=== PATIENT | female | born 1950 | race American Indian/Alaskan Native ===

== ENCOUNTER 2016-07-14 09:24 | Emergency (ER) | payer MEDICARE ==
--- NOTE | 2016-07-14 09:36 | Emergency Department Report ---
ED Asthma HPI - General Stated Complaint: ASTHMA ATTACK Time Seen by Provider: 07/14/16 09:31 Source: patient, family Mode of arrival: Wheelchair Limitations: No Limitations - History of Present Illness Initial Comments: This is a 65-year-old female. Asthma attack. She said this started this morning. Denies any fever or chills. Denies any shortness chest pain or difficulty breathing. She says she is coughing and wheezing. She says she is on albuterol and she is out of her medication. Denies any nausea vomiting. MD Complaint: "asthma attack", wheezing -: This morning Asthma History: adult onset, history of prior ED visit Severity: moderate, similar to prior Context: ran out of meds Associated Symptoms: dry cough Treatments Prior to Arrival: other (none) - Related Data Current Asthma Therapy: inhaled bronchodilator Home Medications Medication Instructions Recorded Confirmed Last Taken Amlodipine Besylate [Norvasc] 10 mg PO DAILY 08/28/15 08/28/15 Unknown Ferrous Sulfate [Feosol 325 MG tab] 325 mg PO DAILY 08/28/15 08/28/15 Unknown Previous Rx's Medication Instructions Recorded Last Taken Type Albuterol Sulfate [Albuterol 0.63% 0.63 mg IH TID PRN #60 units 08/28/15 Unknown Rx NEBS] ALBUTEROL Inhaler [ProAir HFA 2 puff IH QID PRN #1 inhalation 07/14/16 Unknown Rx Inhaler] Doxycycline [Vibramycin CAP] 100 mg PO Q12HR #20 capsule 07/14/16 Unknown Rx predniSONE [Deltasone] 50 mg PO QDAY #5 tab 07/14/16 Unknown Rx Allergies Allergy/AdvReac Type Severity Reaction Status Date / Time No Known Allergies Allergy Unverified 03/16/15 15:52 ED Review of Systems ROS: Stated complaint: ASTHMA ATTACK Other details as noted in HPI Comment: All other systems reviewed and negative Constitutional: denies: chills, fever Eyes: denies: eye discharge ENT: denies: ear pain, throat pain, congestion Respiratory: cough, wheezing. denies: orthopnea, shortness of breath, SOB with exertion, SOB at rest, stridor Cardiovascular: denies: chest pain, palpitations, edema, syncope Gastrointestinal: denies: abdominal pain, nausea, vomiting Musculoskeletal: denies: back pain, arthralgia Skin: denies: rash Neurological: denies: headache, weakness, numbness, paresthesias, confusion, abnormal gait, vertigo ED Past Medical Hx - Past Medical History Previous Medical History?: Yes Hx Hypertension: Yes Hx Asthma: Yes Hx COPD: Yes - Surgical History Past Surgical History?: No - Family History Family history: hypertension - Social History Smoking Status: Former Smoker Substance Use Type: None - Medications Home Medications: Home Medications Medication Instructions Recorded Confirmed Last Taken Type Albuterol Sulfate [Albuterol 0.63% 0.63 mg IH TID PRN #60 units 08/28/15 Unknown Rx NEBS] Amlodipine Besylate [Norvasc] 10 mg PO DAILY 08/28/15 08/28/15 Unknown History Ferrous Sulfate [Feosol 325 MG tab] 325 mg PO DAILY 08/28/15 08/28/15 Unknown History ALBUTEROL Inhaler [ProAir HFA 2 puff IH QID PRN #1 inhalation 07/14/16 Unknown Rx Inhaler] Doxycycline [Vibramycin CAP] 100 mg PO Q12HR #20 capsule 07/14/16 Unknown Rx predniSONE [Deltasone] 50 mg PO QDAY #5 tab 07/14/16 Unknown Rx ED Physical Exam - General Limitations: No Limitations General appearance: alert, in no apparent distress - Head Head exam: Present: atraumatic, normocephalic, normal inspection - Eye Eye exam: Present: normal appearance, PERRL, EOMI. Absent: periorbital swelling , periorbital tenderness Pupils: Present: normal accommodation - ENT ENT exam: Present: normal exam, normal orophraynx, mucous membranes moist, TM's normal bilaterally, normal external ear exam - Neck Neck exam: Present: normal inspection, full ROM. Absent: tenderness, meningismus, lymphadenopathy - Expanded Neck Exam Expanded Neck exam: Absent: tenderness, midline deformity, anterior neck swelling, tracheal deviation - Respiratory Respiratory exam: Present: normal lung sounds bilaterally, wheezes (to bilateral upper lung foster and scattered to lower foster), other (dry cough). Absent: respiratory distress, rales, rhonchi, stridor, chest wall tenderness, accessory muscle use, decreased breath sounds, prolonged expiratory - Cardiovascular Cardiovascular Exam: Present: normal rhythm, tachycardia, normal heart sounds - GI/Abdominal GI/Abdominal exam: Present: soft, normal bowel sounds. Absent: distended, tenderness, guarding, rebound, rigid - Extremities Exam Extremities exam: Present: normal inspection, full ROM, normal capillary refill. Absent: tenderness, pedal edema, joint swelling, calf tenderness - Back Exam Back exam: Present: normal inspection, full ROM. Absent: tenderness, CVA tenderness (R), CVA tenderness (L), muscle spasm, paraspinal tenderness, vertebral tenderness, rash noted - Neurological Exam Neurological exam: Present: alert, oriented X3, normal gait, reflexes normal. Absent: motor sensory deficit - Psychiatric Psychiatric exam: Present: normal affect, normal mood - Skin Skin exam: Present: warm, dry, intact, normal color. Absent: rash ED Course Vital Signs 07/14/16 07/14/16 07/14/16 09:30 10:05 10:22 Temperature 97.9 F Pulse Rate 117 H Pulse Rate [ 101 H 95 H Anterior Bilateral Throughout] Respiratory 24 Rate Respiratory 24 20 Rate [Anterior Bilateral Throughout] Blood Pressure 137/88 Blood Pressure [Left] O2 Sat by Pulse 97 Oximetry 07/14/16 07/14/16 11:08 12:09 Temperature Pulse Rate 87 93 H Pulse Rate [ Anterior Bilateral Throughout] Respiratory 20 20 Rate Respiratory Rate [Anterior Bilateral Throughout] Blood Pressure Blood Pressure 131/80 [Left] O2 Sat by Pulse 95 93 Oximetry Vital Signs 07/14/16 07/14/16 07/14/16 09:30 10:05 10:22 Temperature 97.9 F Pulse Rate 117 H Pulse Rate [ 101 H 95 H Anterior Bilateral Throughout] Respiratory 24 Rate Respiratory 24 20 Rate [Anterior Bilateral Throughout] Blood Pressure 137/88 Blood Pressure [Left] O2 Sat by Pulse 97 Oximetry 07/14/16 07/14/16 07/14/16 11:08 12:09 13:14 Temperature Pulse Rate 87 93 H Pulse Rate [ Anterior Bilateral Throughout] Respiratory 20 20 Rate Respiratory Rate [Anterior Bilateral Throughout] Blood Pressure Blood Pressure 131/80 [Left] O2 Sat by Pulse 95 93 99 Oximetry - Reevaluation(s) Reevaluation #1: 07/14/16 11:15 Patient given Xopenex 2.5 mg along with Atrovent 0.5 mg nebulizer. Patient also given Maxalt a 2 g IV in emergency room. An reevaluation of lungs, lungs sounds are clear and patient says she felt better. ED Medical Decision Making - Lab Data Result diagrams: 07/14/16 11:49 07/14/16 11:49 Lab Results 07/14/16 07/14/16 07/14/16 Range/Units 11:49 11:49 11:49 WBC 8.3 (4.5-11.0) K/mm3 RBC 5.82 H (3.65-5.03) M/mm3 Hgb 11.5 (10.1-14.3) gm/dl Hct 36.8 (30.3-42.9) % MCV 63 L (79-97) fl MCH 20 L (28-32) pg MCHC 31 (30-34) % RDW 16.6 H (13.2-15.2) % Plt Count 253 (140-440) K/mm3 Lymph % (Auto) 8.4 L (13.4-35.0) % [place] % (Auto) 3.2 (0.0-7.3) % Eos % (Auto) 0.4 (0.0-4.3) % Baso % (Auto) 0.3 (0.0-1.8) % Lymph # 0.7 L (1.2-5.4) K/mm3 [place] # 0.3 (0.0-0.8) K/mm3 Eos # 0.0 (0.0-0.4) K/mm3 Baso # 0.0 (0.0-0.1) K/mm3 Seg Neutrophils % 87.7 H (40.0-70.0) % Seg Neutrophils # 7.3 (1.8-7.7) K/mm3 PT 12.8 (12.2-14.9) Sec. INR 0.97 (0.87-1.13) APTT 37.2 H (24.2-36.6) Sec. Sodium 141 (137-145) mmol/L Potassium 4.1 (3.6-5.0) mmol/L Chloride 104.0 (98-107) mmol/L Carbon Dioxide 21 L (22-30) mmol/L Anion Gap 20 mmol/L BUN 13 (7-17) mg/dL Creatinine 0.8 (0.7-1.2) mg/dL Estimated GFR > 60 ml/min BUN/Creatinine Ratio 16.25 % Glucose 145 H (65-100) mg/dL Calcium 9.4 (8.4-10.2) mg/dL Total Bilirubin 0.5 (0.1-1.2) mg/dL Direct Bilirubin < 0.2 (0-0.2) mg/dL AST 15 (5-40) units/L ALT 19 (7-56) units/L Alkaline Phosphatase 54 (35-129) units/L Total Creatine Kinase 123 (30-135) units/L CK-MB (CK-2) 2.4 (0.0-4.0) ng/mL CK-MB (CK-2) Rel Index 1.9 (0-4) Troponin T < 0.010 (0.00-0.029) ng/mL NT-Pro-B Natriuret Pep 35.27 (0-900) pg/mL Total Protein 7.6 (6.3-8.2) g/dL Albumin 4.3 (3.9-5) g/dL Albumin/Globulin Ratio 1.3 % - EKG Data -: EKG Interpreted by Me (Dr. De Los Santos) EKG shows normal: sinus rhythm (at 82 bpm) Rate: normal - EKG Data Interpretation: no acute changes, normal EKG - Radiology Data Radiology results: report reviewed Chest x-ray revealed no acute cardiopulmonary findings. - Medical Decision Making ED course: The diagnoses with moderate acute asthma exacerbation and cough. She was given Xopenex 2.5 mg along with Atrovent 0.5 mg nebulizer and emergency room. She was also given magnesium sulfate 2 g and Solu-Medrol 125 mg IV. Upon reevaluation, lungs sounds clear to all lung foster and patient says she felt much better. Patient discharged home with prescription for pro-air, prednisone and doxycycline. Critical care attestation.: If time is entered above; I have spent that time in minutes in the direct care of this critically ill patient, excluding procedure time. ED Disposition Clinical Impression: Cough, Elevated blood sugar level Acute asthma exacerbation Qualifiers: Asthma severity: moderate persistent Qualified Code(s): J45.41 - Moderate persistent asthma with (acute) exacerbation Disposition: DISCHARGED TO HOME OR SELFCARE Is pt being admited?: No Does the pt Need Aspirin: No Condition: Stable Instructions: Asthma (ED), Acute Cough (ED), How to Check Your Blood Sugar (ED) Additional Instructions: Please follow up with primary care physician Ruiz recommended and discharged paperwork. You have multiple medical problems that need to be followed and monitored by primary care physician. please monitor your blood sugar as it was elevated. Take medication as prescribed. Prescriptions: ALBUTEROL Inhaler [ProAir HFA Inhaler] 2 puff IH QID PRN #1 inhalation PRN Reason: Wheezing Doxycycline [Vibramycin CAP] 100 mg PO Q12HR #20 capsule predniSONE [Deltasone] 50 mg PO QDAY #5 tab Referrals: PRIMARY CAREMD [Primary Care Provider] - 07/17/16 XIN SALAZAR MD [Staff Physician] - 07/17/16 [facility] [Outside] - 07/17/16 Forms: Accompanied Note, Work/School Release Form(ED)
[2016-07-14] MEDS ORDERED: MAGNESIUM SULFATE 2GM/50ML 2 GM/50 ML BAG IV ONE (09:39)
[2016-07-14] MEDS ORDERED: XOPENEX IH ONE (09:55)
[2016-07-14] MEDS ORDERED: ATROVENT IH ONE (09:55)
--- NOTE | 2016-07-14 12:00 | XRay Report ---
ROUTINE CHEST, TWO VIEWS: HISTORY: Cough, wheezing. The trachea, heart, mediastinal contour, lung foster and bony thorax are unremarkable. IMPRESSION: Unremarkable chest x-ray.
[2016-07-14 12:09] VITALS: BP 131/80
[2016-07-14 12:26] LABS: Basophils % (Auto) 0.3 % (0.0-1.8); Creatine Kinase MB 2.4 ng/mL (0.0-4.0); Eosinophils % (Auto) 0.4 % (0.0-4.3); Hematocrit 36.8 % (30.3-42.9); Hemoglobin 11.5 gm/dl (10.1-14.3); Mean Corpuscular HGB Conc 31 % (30-34); Platelet Count 253 K/mm3 (140-440); Red Blood Count 5.82 M/mm3 (3.65-5.03); Red Cell Distribution Width 16.6 % (13.2-15.2); White Blood Count 8.3 K/mm3 (4.5-11.0)
[2016-07-14 12:33] LABS: Alanine Aminotransferase 19 units/L (7-56); Albumin 4.3 g/dL (3.9-5); Albumin/Globulin Ratio 1.3 %; Alkaline Phosphatase 54 units/L (35-129); Anion Gap 20 mmol/L; BUN/Creatinine Ratio 16.25; Bilirubin,Direct < 0.2 mg/dL (0-0.2); Bilirubin,Total 0.5 mg/dL (0.1-1.2); Blood Urea Nitrogen 13 mg/dL (7-17); Calcium 9.4 mg/dL (8.4-10.2); Carbon Dioxide 21 mmol/L (22-30); Creatine Kinase 123 units/L (30-135); Glucose 145 mg/dL (65-100); Potassium 4.1 mmol/L (3.6-5.0); Sodium 141 mmol/L (137-145); Total Protein 7.6 g/dL (6.3-8.2)
[2016-07-14 12:36] LABS: Partial Thromboplastin Time 37.2 Sec. (24.2-36.6)
[2016-07-14 12:39] LABS: INR 0.97 (0.87-1.13)
[2016-07-14 13:02] LABS: Mean Corpuscular Hemoglobin 20 pg (28-32); Mean Corpuscular Volume 63 fl (79-97)
== END 2016-07-14 13:17 | disposition home or self-care (01) ==
LOC: ED 09:24
DX: R73.9 Hyperglycemia, unspecified (principal); J45.41 Moderate persistent asthma with (acute) exacerbation; I10 Essential (primary) hypertension; Z87.891 Personal history of nicotine dependence
CPT/HCPCS: 36415; 71020; 80048; 80074; 82550; 82553; 83880; 84484; 85025; 85610; 85730; 93005; 93010; 94640; 96365; 96375; 99284; J2930; J3475

== ENCOUNTER 2017-03-05 08:20 | Emergency (ER) | payer MEDICARE ==
[2017-03-05] MEDS ORDERED: ATROVENT IH ONE ×2 (08:37→08:48)
[2017-03-05] MEDS ORDERED: PROVENTIL IH ONE ×2 (08:37→08:47)
[2017-03-05 09:17] VITALS: BP 130/94
[2017-03-05] MEDS ORDERED: MAGNESIUM SULFATE 2GM/50ML 2 GM/50 ML BAG IV ONE (10:22)
[2017-03-05] MEDS ORDERED: TYLENOL PO ONE (10:22)
--- NOTE | 2017-03-05 10:22 | Emergency Department Report ---
ED Asthma HPI - General Chief Complaint: Dyspnea/Respdistress Stated Complaint: ASTHMA/ELODIA Time Seen by Provider: 03/05/17 10:11 Source: patient, RN notes reviewed, old records reviewed Mode of arrival: Ambulatory Limitations: No Limitations - History of Present Illness Initial Comments: This is a 66-year-old female who was previously unknown to this provider, patient has a past medical history of asthma, multiple lifetime ER evaluations, but patient denies intubation hospital admission. Patient presents to the ER today with a complaint of shortness of breath, cough and wheezing. The symptoms have been going on acutely for the past 2 days, but they've been going on and off for months. There is no leg pain, there is no leg swelling, no recent surgeries, patient denies chest pain per se, but admits to bilateral inferior thoracic wall discomfort and epigastric pain for the past 3 months, which waxes and wanes versus not radiate anywhere. MD Complaint: "asthma attack", shortness of breath, wheezing -: Gradual, days(s), month(s) Asthma History: adult onset, history of frequent attac, history of prior ED visit Severity: moderate Context: recent URI, ran out of meds Associated Symptoms: productive cough. denies: hemoptysis, leg edema - Related Data Home Medications Medication Instructions Recorded Confirmed Last Taken Amlodipine Besylate [Norvasc] 10 mg PO DAILY 08/28/15 08/28/15 Unknown Ferrous Sulfate [Feosol 325 MG tab] 325 mg PO DAILY 08/28/15 08/28/15 Unknown Previous Rx's Medication Instructions Recorded Last Taken Type Albuterol Sulfate [Albuterol 0.63% 0.63 mg IH TID PRN #60 units 08/28/15 Unknown Rx NEBS] ALBUTEROL Inhaler [ProAir HFA 2 puff IH QID PRN #1 inhalation 07/14/16 Unknown Rx Inhaler] Doxycycline [Vibramycin CAP] 100 mg PO Q12HR #20 capsule 07/14/16 Unknown Rx predniSONE [Deltasone] 50 mg PO QDAY #5 tab 07/14/16 Unknown Rx Acetaminophen [Tylenol Arthritis] 650 mg PO Q6HR PRN #30 tablet.er 03/05/17 Unknown Rx Albuterol Sulfate [Proair 90 mcg IH Q4HR PRN #2 aer.pow.ba 03/05/17 Unknown Rx Respiclick] Benzonatate [Tessalon Perles] 100 mg PO Q8HR PRN #30 capsule 03/05/17 Unknown Rx Fluticasone [Flonase] 1 spray NS QDAY #1 bottle 03/05/17 Unknown Rx Ipratropium [place] [Atrovent Hfa] 12.9 gm IH Q4HR #2 hfa.aer.ad 03/05/17 Unknown Rx predniSONE [Deltasone] 40 mg PO QDAY #8 tab 03/05/17 Unknown Rx Allergies Allergy/AdvReac Type Severity Reaction Status Date / Time No Known Allergies Allergy Unverified 03/16/15 15:52 ED Review of Systems ROS: Stated complaint: ASTHMA/ELODIA Other details as noted in HPI Constitutional: denies: fever Eyes: denies: eye discharge ENT: congestion Respiratory: SOB with exertion, wheezing Cardiovascular: denies: syncope Gastrointestinal: denies: vomiting Genitourinary: as per HPI Musculoskeletal: as per HPI Skin: as per HPI Neurological: as per HPI ED Past Medical Hx - Past Medical History Hx Hypertension: Yes Hx Asthma: Yes Hx COPD: Yes - Social History Smoking Status: Never Smoker Substance Use Type: None - Medications Home Medications: Home Medications Medication Instructions Recorded Confirmed Last Taken Type Albuterol Sulfate [Albuterol 0.63% 0.63 mg IH TID PRN #60 units 08/28/15 Unknown Rx NEBS] Amlodipine Besylate [Norvasc] 10 mg PO DAILY 08/28/15 08/28/15 Unknown History Ferrous Sulfate [Feosol 325 MG tab] 325 mg PO DAILY 08/28/15 08/28/15 Unknown History ALBUTEROL Inhaler [ProAir HFA 2 puff IH QID PRN #1 inhalation 07/14/16 Unknown Rx Inhaler] Doxycycline [Vibramycin CAP] 100 mg PO Q12HR #20 capsule 07/14/16 Unknown Rx predniSONE [Deltasone] 50 mg PO QDAY #5 tab 07/14/16 Unknown Rx Acetaminophen [Tylenol Arthritis] 650 mg PO Q6HR PRN #30 tablet.er 03/05/17 Unknown Rx Albuterol Sulfate [Proair 90 mcg IH Q4HR PRN #2 aer.pow.ba 03/05/17 Unknown Rx Respiclick] Benzonatate [Tessalon Perles] 100 mg PO Q8HR PRN #30 capsule 03/05/17 Unknown Rx Fluticasone [Flonase] 1 spray NS QDAY #1 bottle 03/05/17 Unknown Rx Ipratropium [place] [Atrovent Hfa] 12.9 gm IH Q4HR #2 hfa.aer.ad 03/05/17 Unknown Rx predniSONE [Deltasone] 40 mg PO QDAY #8 tab 03/05/17 Unknown Rx ED Physical Exam - General Limitations: No Limitations General appearance: alert, in no apparent distress, obese - Head Head exam: Present: atraumatic, normocephalic - Eye Eye exam: Present: normal appearance, EOMI - ENT ENT exam: Present: normal exam, normal orophraynx, mucous membranes moist, normal external ear exam - Neck Neck exam: Present: normal inspection, full ROM. Absent: tenderness, meningismus - Respiratory Respiratory exam: Present: wheezes, rhonchi. Absent: respiratory distress - Cardiovascular Cardiovascular Exam: Present: regular rate, normal rhythm, normal heart sounds. Absent: bradycardia, tachycardia, irregular rhythm, systolic murmur, diastolic murmur, rubs, gallop - GI/Abdominal GI/Abdominal exam: Present: soft, normal bowel sounds. Absent: distended, tenderness, guarding, rebound, rigid, pulsatile mass - Extremities Exam Extremities exam: Present: normal inspection, full ROM, normal capillary refill. Absent: pedal edema, joint swelling, calf tenderness - Back Exam Back exam: Present: normal inspection, full ROM. Absent: tenderness, CVA tenderness (R), paraspinal tenderness, vertebral tenderness - Neurological Exam Neurological exam: Present: alert, oriented X3, CN II-XII intact, normal gait, other (Extraocular movements intact. Tongue midline. No facial droop. Facial sensation intact to light touch in the V1, V2, V3 distribution bilaterally. 5 and 5 strength in 4 extremities.. Sensation is intact to light touch in 4 extremities.). Absent: motor sensory deficit - Psychiatric Psychiatric exam: Present: normal affect, normal mood - Skin Skin exam: Present: warm, dry, intact, normal color. Absent: rash ED Course Vital Signs 03/05/17 03/05/17 08:24 09:14 Temperature 98.4 F Pulse Rate 93 H 116 H Respiratory 24 Rate Blood Pressure 115/77 Blood Pressure 130/94 [Left] O2 Sat by Pulse 91 94 Oximetry - Reevaluation(s) Reevaluation #1: 03/05/17 11:02 Differential diagnosis, including but not limited to: Asthma, bronchitis, pneumonitis, hiatal hernia,(reactive airway disease Assessment and plan: 66-year-old female with cough, wheezing, mucus production, epigastric discomfort, for a few days to a few months. She is wheezing. No pulmonary embolus or DVT risk factors, low risk by well's criteria. When I go into the room, the patient is sleeping, but wheezing on exam. She will be treated empirically with albuterol, Atrovent, steroids and magnesium. X-ray of the chest will be obtained, EKG unchanged from prior, symptoms present for months, low risk by YULISSA score, low risk by well's criteria, low risk by heart score, as being [employer] clinical policy, myocardial infarction may be excluded with 1 set of troponins if symptoms have been present for greater than 8 hours. Reevaluation #2: 03/05/17 12:11 The patient feels much improved. The patient is able to walk around the department without desaturation. Still has minimal wheezing, I would expect this. Has some tachycardia, I would also expect his from the albuterol. Patient medically suitable to be discharged at this time, return precautions are reviewed. ED Medical Decision Making - Lab Data Result diagrams: 03/05/17 10:27 03/05/17 10:27 Vital Signs 03/05/17 03/05/17 08:24 09:14 Temperature 98.4 F Pulse Rate 93 H 116 H Respiratory 24 Rate Blood Pressure 115/77 Blood Pressure 130/94 [Left] O2 Sat by Pulse 91 94 Oximetry Lab Results 03/05/17 Range/Units 10:27 Sodium 139 (137-145) mmol/L Potassium 4.1 (3.6-5.0) mmol/L Chloride 99.8 (98-107) mmol/L Carbon Dioxide 19 L (22-30) mmol/L Anion Gap 24 mmol/L BUN 18 H (7-17) mg/dL Creatinine 0.9 (0.7-1.2) mg/dL Estimated GFR > 60 ml/min BUN/Creatinine Ratio 20 % Glucose 160 H (65-100) mg/dL Calcium 9.5 (8.4-10.2) mg/dL - EKG Data -: EKG Interpreted by Me EKG shows normal: sinus rhythm Rate: normal - EKG Data When compared to previous EKG there are: no significant change Interpretation: unchanged when compared t 03/05/17 11:03 Sinus tachycardia, 104 bpm, normal axis, borderline prolonged QTC at 525 ms, premature atrial contractions, low voltage, abnormal EKG, appears unchanged from prior from August 2015. - Radiology Data Radiology results: pending Critical care attestation.: If time is entered above; I have spent that time in minutes in the direct care of this critically ill patient, excluding procedure time. ED Disposition Clinical Impression: Asthma attack Disposition: DC- TO HOME OR SELFCARE Is pt being admited?: No Does the pt Need Aspirin: No Condition: Stable Instructions: Asthma (ED) Additional Instructions: Take a breathing medication, cough medication as needed. Follow up with the primary care doctor or health services rn within the next 7-[address] Harris Payne is a local primary care doctor. Dr. Cruz is a local lung doctor. Return to the ER right away with new pain, worsening pain, migration of pain, fevers, chills, lethargy, irritability, projectile vomiting, confusion, change in mental status, inability to tolerate liquid feeds. Prescriptions: Acetaminophen [Tylenol Arthritis] 650 mg PO Q6HR PRN #30 tablet.er PRN Reason: Pain Albuterol Sulfate [Proair Respiclick] 90 mcg IH Q4HR PRN #2 aer.pow.ba PRN Reason: Wheezing Benzonatate [Tessalon Perles] 100 mg PO Q8HR PRN #30 capsule PRN Reason: Cough Fluticasone [Flonase] 1 spray NS QDAY #1 bottle Ipratropium [place] [Atrovent Hfa] 12.9 gm IH Q4HR #2 hfa.aer.ad predniSONE [Deltasone] 40 mg PO QDAY #8 tab Referrals: PRIMARY CARE, [Primary Care Provider] - 3-5 Days MEGAN GRIGSBY MD [Staff Physician] - 3-5 Days NGOC CRUZ MD [Staff Physician] - 3-5 Days [facility] [Provider Group] - 3-5 Days Forms: Accompanied Note
[2017-03-05 10:41] LABS: Hematocrit 37.4 % (30.3-42.9); Hemoglobin 11.8 gm/dl (10.1-14.3); Mean Corpuscular HGB Conc 32 % (30-34); Platelet Count 237 K/mm3 (140-440); Red Blood Count 5.88 M/mm3 (3.65-5.03); Red Cell Distribution Width 16.4 % (13.2-15.2); White Blood Count 5.9 K/mm3 (4.5-11.0)
[2017-03-05 10:58] LABS: Anion Gap 24 mmol/L; BUN/Creatinine Ratio 20; Blood Urea Nitrogen 18 mg/dL (7-17); Calcium 9.5 mg/dL (8.4-10.2); Carbon Dioxide 19 mmol/L (22-30); Chloride 99.8 mmol/L (98-107); Glucose 160 mg/dL (65-100); Potassium 4.1 mmol/L (3.6-5.0); Sodium 139 mmol/L (137-145)
[2017-03-05 11:09] LABS: Mean Corpuscular Hemoglobin 20 pg (28-32); Mean Corpuscular Volume 64 fl (79-97)
--- NOTE | 2017-03-05 11:25 | XRay Report ---
AP CHEST: HISTORY: Dyspnea AP view of the chest demonstrates a normal mediastinal and cardiac contour with clear lungs and normal bony and soft tissue structures. IMPRESSION: Unremarkable AP chest.
== END 2017-03-05 12:29 | disposition home or self-care (01) ==
LOC: ED 08:20
DX: J45.909 Unspecified asthma, uncomplicated (principal); I10 Essential (primary) hypertension; J44.9 Chronic obstructive pulmonary disease, unspecified
CPT/HCPCS: 36415; 71010; 80048; 84484; 85027; 93005; 93010; 94640; 96365; 96375; 99284; J2930; J3475

== ENCOUNTER 2018-09-05 11:54 | Emergency (ER) | payer MEDICARE ==
[2018-09-05 12:16] VITALS: BP 147/82
[2018-09-05] MEDS ORDERED: PROVENTIL IH ONE (12:16)
[2018-09-05] MEDS ORDERED: ATROVENT IH ONE (12:16)
--- NOTE | 2018-09-05 12:16 | Emergency Department Report ---
Blank Doc - Documentation Documentation: pt presents to SOB, wheezing that began three days ago PMHx asthma -albuterol inhaler, having to use more often +dry cough +congestion no fever PMHx HTN non smoker non drinker no drug use
[2018-09-05] MEDS ORDERED: DECADRON IM ONE (12:17)
--- NOTE | 2018-09-05 12:54 | XRay Report ---
ROUTINE CHEST, TWO VIEWS: HISTORY: Cough, history of asthma. The trachea, heart, mediastinal contour, lung foster and bony thorax are unremarkable. IMPRESSION: Unremarkable chest x-ray.
--- NOTE | 2018-09-05 13:30 | Emergency Department Report ---
- General Chief Complaint: Dyspnea/Respdistress Stated Complaint: ELODIA/WHEEZING Time Seen by Provider: 09/05/18 12:14 Source: patient Mode of arrival: Ambulatory Limitations: No Limitations - History of Present Illness Initial Comments: Patient is a 67-year-old female with past medical history of asthma COPD who is presenting with cough congestion for the last 3-4 days patient states he is to have a cough productive of clear sputum. Patient denies any fever nausea vomiting or diarrhea at this time. Patient states cough is accompanied by some mild discomfort in the chest. Patient states she has been wheezing and does have an inhaler at home but does not feel as though it's helping. - Related Data Home Medications Medication Instructions Recorded Confirmed Last Taken Amlodipine Besylate [Norvasc] 10 mg PO DAILY 08/28/15 08/28/15 Unknown Ferrous Sulfate [Feosol 325 MG tab] 325 mg PO DAILY 08/28/15 08/28/15 Unknown Previous Rx's Medication Instructions Recorded Last Taken Type Albuterol Sulfate [Albuterol 0.63% 0.63 mg IH TID PRN #60 units 08/28/15 Unknown Rx NEBS] ALBUTEROL Inhaler (OR & NICU) 2 puff IH QID PRN #1 inhalation 07/14/16 Unknown Rx [ProAir HFA Inhaler] DOXYCYCLINE Hyclate [Vibramycin 100 mg PO Q12HR #20 capsule 07/14/16 Unknown Rx CAP] predniSONE [Deltasone] 50 mg PO QDAY #5 tab 07/14/16 Unknown Rx Acetaminophen [Tylenol Arthritis] 650 mg PO Q6HR PRN #30 tablet.er 03/05/17 Unknown Rx Albuterol Sulfate [Proair 90 mcg IH Q4HR PRN #2 aer.pow.ba 03/05/17 Unknown Rx Respiclick] Benzonatate [Tessalon Perles] 100 mg PO Q8HR PRN #30 capsule 03/05/17 Unknown Rx Fluticasone [Flonase] 1 spray NS QDAY #1 bottle 03/05/17 Unknown Rx Ipratropium [place] [Atrovent Hfa] 12.9 gm IH Q4HR #2 hfa.aer.ad 03/05/17 Unknown Rx predniSONE [Deltasone] 40 mg PO QDAY #8 tab 03/05/17 Unknown Rx ALBUTEROL Inhaler (OR & NICU) 2 puff IH QID PRN #1 inhalation 09/05/18 Unknown Rx [ProAir HFA Inhaler] Azithromycin [Zithromax Z-PAULA] 250 mg PO DAILY #6 tablet 09/05/18 Unknown Rx Benzonatate [Tessalon Perles] 100 mg PO Q8HR #10 capsule 09/05/18 Unknown Rx predniSONE [Deltasone] 10 mg PO .TAPER #21 tab 09/05/18 Unknown Rx Allergies Allergy/AdvReac Type Severity Reaction Status Date / Time No Known Allergies Allergy Verified 09/05/18 11:55 ED Review of Systems ROS: Stated complaint: ELODIA/WHEEZING Other details as noted in HPI Comment: All other systems reviewed and negative ED Past Medical Hx - Past Medical History Hx Hypertension: Yes Hx Asthma: Yes Hx COPD: Yes - Surgical History Additional Surgical History: NONE - Social History Smoking Status: Never Smoker Substance Use Type: None - Medications Home Medications: Home Medications Medication Instructions Recorded Confirmed Last Taken Type Albuterol Sulfate [Albuterol 0.63% 0.63 mg IH TID PRN #60 units 08/28/15 Unknown Rx NEBS] Amlodipine Besylate [Norvasc] 10 mg PO DAILY 08/28/15 08/28/15 Unknown History Ferrous Sulfate [Feosol 325 MG tab] 325 mg PO DAILY 08/28/15 08/28/15 Unknown History ALBUTEROL Inhaler (OR & NICU) 2 puff IH QID PRN #1 inhalation 07/14/16 Unknown Rx [ProAir HFA Inhaler] DOXYCYCLINE Hyclate [Vibramycin 100 mg PO Q12HR #20 capsule 07/14/16 Unknown Rx CAP] predniSONE [Deltasone] 50 mg PO QDAY #5 tab 07/14/16 Unknown Rx Acetaminophen [Tylenol Arthritis] 650 mg PO Q6HR PRN #30 tablet.er 03/05/17 Unknown Rx Albuterol Sulfate [Proair 90 mcg IH Q4HR PRN #2 aer.pow.ba 03/05/17 Unknown Rx Respiclick] Benzonatate [Tessalon Perles] 100 mg PO Q8HR PRN #30 capsule 03/05/17 Unknown Rx Fluticasone [Flonase] 1 spray NS QDAY #1 bottle 03/05/17 Unknown Rx Ipratropium [place] [Atrovent Hfa] 12.9 gm IH Q4HR #2 hfa.aer.ad 03/05/17 Unknown Rx predniSONE [Deltasone] 40 mg PO QDAY #8 tab 03/05/17 Unknown Rx ALBUTEROL Inhaler (OR & NICU) 2 puff IH QID PRN #1 inhalation 09/05/18 Unknown Rx [ProAir HFA Inhaler] Azithromycin [Zithromax Z-PAULA] 250 mg PO DAILY #6 tablet 09/05/18 Unknown Rx Benzonatate [Tessalon Perles] 100 mg PO Q8HR #10 capsule 09/05/18 Unknown Rx predniSONE [Deltasone] 10 mg PO .TAPER #21 tab 09/05/18 Unknown Rx ED Physical Exam - General Limitations: No Limitations General appearance: alert, in no apparent distress - Head Head exam: Present: atraumatic, normocephalic - Eye Eye exam: Present: normal appearance - ENT ENT exam: Present: mucous membranes moist - Neck Neck exam: Present: normal inspection - Respiratory Respiratory exam: Present: wheezes. Absent: normal lung sounds bilaterally, respiratory distress, rales, rhonchi - Cardiovascular Cardiovascular Exam: Present: regular rate, normal rhythm, normal heart sounds. Absent: systolic murmur, diastolic murmur, rubs, gallop - GI/Abdominal GI/Abdominal exam: Present: soft, normal bowel sounds. Absent: distended, tenderness, guarding, rebound - Extremities Exam Extremities exam: Present: normal inspection - Back Exam Back exam: Present: normal inspection - Neurological Exam Neurological exam: Present: alert, oriented X3 - Psychiatric Psychiatric exam: Present: normal affect, normal mood - Skin Skin exam: Present: warm, dry, intact, normal color. Absent: rash ED Course Vital Signs 09/05/18 09/05/18 12:15 12:47 Temperature 98.5 F Pulse Rate 105 H Pulse Rate [ 89 Anterior Bilateral Throughout] Respiratory 22 Rate Respiratory 18 Rate [Anterior Bilateral Throughout] Blood Pressure 147/82 O2 Sat by Pulse 97 Oximetry ED Medical Decision Making - Radiology Data Radiology results: report reviewed (chest x-ray shows no acute process) - Medical Decision Making Patient received a nebulizer treatment here in the emergency department and is feeling much improved at the time of discharge. Wheezing is resolved. Patient be discharged home. Critical care attestation.: If time is entered above; I have spent that time in minutes in the direct care of this critically ill patient, excluding procedure time. ED Disposition Clinical Impression: Acute exacerbation of COPD with asthma Disposition: DC-01 TO HOME OR SELFCARE Is pt being admited?: No Does the pt Need Aspirin: No Condition: Stable Instructions: Chronic Obstructive Pulmonary Disease (ED) Referrals: LEIGHTON SAWANT MD [Staff Physician] - 3-5 Days Time of Disposition: 13:29
== END 2018-09-05 13:35 | disposition home or self-care (01) ==
LOC: ED 11:54
DX: J44.9 Chronic obstructive pulmonary disease, unspecified (principal); I10 Essential (primary) hypertension; Z79.899 Other long term (current) drug therapy
CPT/HCPCS: 71046; 94640; 96372; 99283; J1100

== ENCOUNTER 2021-10-24 12:35 | Emergency (ER) | payer MEDICARE ==
[2021-10-24] MEDS ORDERED: SODIUM CHLORIDE 0.9% 1000 ML 1,000 ML IV ONE (14:00)
[2021-10-24 15:02] VITALS: BP 94/63
[2021-10-24 15:59] LABS: Basophils % (Auto) 0.2 % (0.0-1.8); Eosinophils % (Auto) 0.1 % (0.0-4.3); Hematocrit 35.3 % (30.3-42.9); Hemoglobin 11.3 gm/dl (10.1-14.3); Lymphocytes # (Auto) 1.4 K/mm3 (1.2-5.4); Lymphocytes % (Auto) 18.9 % (13.4-35.0); Mean Corpuscular HGB Conc 32 % (30-34); Monocytes % (Auto) 12.9 % (0.0-7.3); Platelet Count 257 K/mm3 (140-440); Red Blood Count 5.53 M/mm3 (3.65-5.03); Red Cell Distribution Width 16.4 % (13.2-15.2)
[2021-10-24 16:03] LABS: Mean Corpuscular Volume 64 fl (79-97)
[2021-10-24 16:30] LABS: Albumin 4.3 g/dL (3.9-5); Calcium 9.6 mg/dL (8.4-10.2)
--- NOTE | 2021-10-24 21:03 | XRay Report ---
XR abdomen 2V INDICATION / CLINICAL INFORMATION: abd pain and constipation. COMPARISON: None available. FINDINGS: TUBES / LINES: None. BOWEL GAS PATTERN: Small quantity of stool visualized. Nonobstructive bowel gas pattern. FREE AIR / EXTRALUMINAL GAS: None seen. ADDITIONAL FINDINGS: Mild rightward curvature of the thoracolumbar spine. No significant additional f indings. IMPRESSION: 1. Nonobstructive bowel gas pattern. Signer Name: Ovi Jaime MD Signed: 10/24/2021 8:58 PM Workstation Name: [id number]
--- NOTE | 2021-10-25 09:41 | Electrocardiograph Report ---
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
== END 2021-10-25 06:11 | disposition left against medical advice (07) ==
LOC: ED 12:35
DX: R10.9 Unspecified abdominal pain (principal); Z53.21 Procedure and treatment not carried out due to patient leaving prior to being seen by health care provider
CPT/HCPCS: 36415; 74019; 80053; 83690; 85025; 93005; J7030